=== PATIENT | male | born 1960 | race Caucasian/White ===

== ENCOUNTER 2017-08-26 17:17 | Emergency (ER) | payer OTHER ==
[2017-08-26 17:23] VITALS: BP 140/79; TEMP 98.9; BMI 24.7
[2017-08-26] MEDS ORDERED: LIDOCAINE HCL 1% SDV SUBCUT STA (17:39)
--- NOTE | 2017-08-26 18:05 | ED.PDOC ---
General ED Provider: Dr. FELISA MONREAL Chief Complaint: Laceration Stated Complaint: laceration right damico Time Seen by Physician: 17:19 (see photos) Mode of Arrival: Walk-In Information Source: Patient, Assisted Living Nursing and Triage Documentation Reviewed and Agree: Yes Reviewed sepsis parameters & appropriate labs ordered?: Yes System Inflammatory Response Syndrome: Not Applicable Sepsis Protocol: For patient's 13 years and over: Temp is 96.8 and below OR 101 and greater Pulse >90 BPM Resp >20/minute Acutely Altered Mental Status Are patient's symptoms suggestive of a new infection, such as: -Pneumonia -Skin, Soft Tissue -Endocarditis -UTI -Bone, Joint Infection -Implantable Device -Acute Abdominal Infection -Wound Infection -Meningitis -Blood Stream Catheter Infection -Unknown System Inflammatory Response Syndrome: Not Applicable Skin Complaint Exam - Laceration/Lower Ext. Complaint/Exam Location of Injury: Right, Leg Mechanism of Injury: Laceration Onset/Duration: 1 hr ago sharp metal Symptoms Are: Still present Initial Severity: Mild Current Severity: Mild Aggravating: None Alleviating: Compression Associated Signs and Symptoms: Denies: Fever, Chills, Erythema, Numbness, Tingling Differential Diagnoses: Laceration Review of Systems - Review Of Systems Constitutional: Reports: No symptoms Eyes: Reports: No symptoms Ears, Nose, Mouth, Throat: Reports: No symptoms Respiratory: Reports: No symptoms Cardiac: Reports: No symptoms GI: Reports: No symptoms : Reports: No symptoms Musculoskeletal: Reports: No symptoms Skin: Reports: Other (laceration see photos) Neurological: Reports: No symptoms Endocrine: Reports: No symptoms Hematologic/Lymphatic: Reports: No symptoms All Other Systems: Reviewed and Negative Past Medical History - Past Medical History Previously Healthy: Yes Endocrine: Reports: None Cardiovascular: Reports: None Respiratory: Reports: None Hematological: Reports: None Gastrointestinal: Reports: None Genitourinary: Reports: None Neuro/Psych: Reports: None Musculoskeletal: Reports: None Cancer: Reports: None - Surgical History General Surgical History: Reports: None - Family History Family History: Reports: None - Social History Smoking Status: Former smoker Hx Substance Use: No Alcohol Screening: Occasionally - Immunizations Tetanus Shot up to Date: Yes (2 yrs ago) Physical Exam - Physical Exam Appearance: Well-appearing, No pain distress, Well-nourished Eyes: ESTEBAN, EOMI, Conjunctiva clear ENT: Ears normal, Nose normal, Oropharynx normal Respiratory: Airway patent, Breath sounds clear, Breath sounds equal, Respirations nonlabored Cardiovascular: RRR, Pulses normal, No rub, No murmur GI/: Soft, Nontender, No masses, Bowel sounds normal, No Organomegaly Musculoskeletal: Normal strength, ROM intact, No edema, No calf tenderness Skin: Warm, Dry (1 cm laceration right damico no F/B) Neurological: Sensation intact, Motor intact, Reflexes intact, Cranial nerves intact, Alert, Oriented Psychiatric: Affect appropriate, Mood appropriate Procedures - Laceration/Wound Repair No standard instances Wound Description: Linear Wound Length (cm): 1CM Wound Width: 2MM Wound Depth: 2MM Wound Explored: Clean Wound Prep: Saline Anesthesia: Lidocaine Wound Debrided: Minimal Undermining: Minimal Wound Margins: Revised Wound Repaired With: Sutures Suture Size and Type: 3 PROLENE Number of Sutures: 8 Number of Matilde: 0 Sterile Dressing Applied?: Yes Splint Applied?: No Critical Care Note - Critical Care Note Total Time (mins): 0 Course - Course Orders, Labs, Meds: Orders Category Date Time Status Lidocaine HCl/Pf [Lidocaine HCl 1% Sdv] MEDS 08/26/17 17:39 Discontinued 5 ml SUBCUT ONCE STA Medications Discontinued Medications Generic Name Dose Route Start Last Admin Trade Name Freq PRN Reason Stop Dose Admin Lidocaine HCl 5 ml 08/26/17 17:39 08/26/17 17:43 Lidocaine Hcl 1% Sdv SUBCUT 08/26/17 17:40 5 ml ONCE STA Administration Vital Signs: Temp Pulse Resp BP Pulse Ox 08/26/17 17:17 98.9 F 87 16 140/79 98 Departure - Departure Time of Disposition: 18:05 (PT STATED HIS TETNUS IS UTD . PHOTOS SUBMITTED ) Disposition: HOME SELF-CARE Discharge Problem: Laceration - injury Laceration of right lower leg Qualifiers: Encounter type: initial encounter Qualified Code(s): S81.811A - Laceration without foreign body, right lower leg, initial encounter Instructions: Laceration (ED), Care For Your Stitches (DC) Condition: Good Pt referred to PMD for follow-up: Yes IPMP verified?: No Additional Instructions: Please call your Family Physician as soon as possible to schedule a follow-up appointment. Allergies/Adverse Reactions: Allergies No Known Allergies Allergy (Unverified 04/18/18 17:24) Home Medications: Ambulatory Orders 1 [No Reported Medications] 08/26/17
== END 2017-08-26 18:30 | disposition home or self-care (01) ==
LOC: ED 17:17
DX: S81.811A Laceration without foreign body, right lower leg, initial encounter (principal); W26.8XXA Contact with other sharp object(s), not elsewhere classified, initial encounter
CPT/HCPCS: 99283